=== PATIENT | male | born 1980 | race Caucasian/White ===

== ENCOUNTER 2017-10-17 20:47 | Emergency (ER) | payer OTHER ==
[~2017-10-17] VITALS: Ht 172.7 cm; Wt 90.7 kg
--- NOTE | 2017-10-17 21:02 | ED Upper Extremity ---
General Stated Complaint: L WRIST INJ, FALL Source: patient Exam Limitations: no limitations History of Present Illness Date Seen by Provider: Oct 17, 2017 Time Seen by Provider: 20:59 Initial Comments o ER with reports of a left wrist injury after a [place] the skating rink. He was skating when he fell backwards and landed attempting to catch himself on an outstretched left arm. He has deformity and swelling at the wrist. Onset: just prior to arrival Severity: moderate Pain/Injury Location: bilateral forearm; left wrist Method of Injury: fell Modifying Factors: Worse With Movement Allergies and Home Medications Allergies Coded Allergies: No Known Drug Allergies (Unverified , 10/17/17) Home Medications Hydrocodone/Acetaminophen 1 Each Tablet, 1 EACH PO Q4H PRN for PAIN-MODERATE TO SEVERE Prescribed by: ARANZA SAENZ on 10/17/172127 Patient Home Medication List Home Medication List Reviewed: Yes Constitutional: see HPI EENTM: see HPI Respiratory: no symptoms reported Cardiovascular: no symptoms reported Genitourinary: no symptoms reported Musculoskeletal: see HPI Skin: no symptoms reported Psychiatric/Neurological: No Symptoms Reported Past Kzdymws-Sukdpl-Rnzlqm Hx Patient Social History Recent Foreign Travel: No Contact w/Someone Who Travel: No Physical Exam Vital Signs Vital Signs - First Documented 10/17/17 21:01 Temp 98.0 Pulse 89 Resp 20 B/P (MAP) 130/102 (111) Pulse Ox 99 O2 Delivery Room Air Capillary Refill : General Appearance: WD/WN, no apparent distress HEENT: PERRL/EOMI, normal ENT inspection Neck: non-tender, full range of motion Respiratory: no respiratory distress, no accessory muscle use Gastrointestinal: normal bowel sounds, non tender Elbow/Forearm: normal inspection, non-tender, Right Wrist: Yes deformity, Yes pain, Yes soft tissue tenderness, Yes swelling Hand: normal inspection, non-tender (distally he is neurovascularly intact with normal sensation and brisk capillary refill of the fingertips. He does have a ring on his ring finger which we did have him remove himself and place on one of the fingers on the right hand) Neurologic/Tendon: normal sensation, normal motor functions Neurologic/Psychiatric: alert, normal mood/affect, oriented x 3 Skin: normal color, warm/dry Progress/Results/Core Measures Results/Orders My Orders Orders - ARANZA SAENZ APRN Wrist, Left, 3 Views Or More (10/17/17 20:58) Forearm, Left, 2 Views (10/17/17 20:58) Rx-Hydrocodone/[place] 5-325 Mg (Rx-Vicodin (10/17/17 22:00) Vital Signs/I&O 10/17/17 21:01 Temp 98.0 Pulse 89 Resp 20 B/P (MAP) 130/102 (111) Pulse Ox 99 O2 Delivery Room Air Diagnostic Imaging Diagonstic Imaging: Xray Comments NAME: EMELI DICKSON [facility] REC#: [id number] PT STATUS: REG ER : 1980 PHYSICIAN: ARANZA SAENZ APRN ADMIT DATE: 10/17/17/ER Draft Date of Exam:10/17/17 FOREARM, LEFT, 2 VIEWS INDICATION: Fell backwards, wrist pain and swelling EXAMINATION: Left forearm 10/17/2017 FINDINGS: Fracture of distal radius is noted; see the separate wrist radiograph. The remaining forearm is intact proximally with no fractures in the proximal forearm and no dislocations. The elbow joint grossly unremarkable. IMPRESSION: 1. Distal radius fracture; see separate wrist report. Proximal forearm intact. Dictated on workstation # [id number] Dict: 10/17/172134 Trans: 10/17/172143 [facility] [id number] Interpreted by: MATT OCHOA MD Electronically signed by: Departure Communication (Admissions) ppatient was placed in a sugar tong style splint by me Impression Primary Impression: Distal radius fracture Disposition: 01 HOME, SELF-CARE Condition: Stable Departure-Patient Inst. Decision time for Depature: 21:26 Referrals: EMELI RAIN MD, BRIAN J MD MCNEMAR, MARK E DO NO,LOCAL PHYSICIAN (PCP) Primary Care Physician INOCENCIA MONTOYA MD,LUIS MIGUEL August MD Patient Instructions: Wrist Fracture (DC) Add. Discharge Instructions: wear the splint at all times until you follow up with orthopedics. Call on Friday to make an appointment to be seen within the next 1-2 weeks. keep the arm elevated on several pillows while you're sleeping. This will help reduce the swelling and the subsequent throbbing sensation. Return to ER for any numbness or loss of sensation to the fingertips. Pain medication as directed. Scripts Hydrocodone/Acetaminophen ([place] 5-325 Tablet) 1 Each Tablet 1 EACH PO Q4H PRN for PAIN-MODERATE TO SEVERE, #20 TAB Prov: ARANZA SAENZ APRN 10/17/17 Work/School Note: Work Release Form Date Seen in the Emergency Department: Oct 17, 2017 Return to Work: Oct 18, 2017 Other Restrictions Listed Below: no use of left hand until cleared ARANZA SAENZ APRN Oct 17, 2017 21:02
[2017-10-17] MEDS ORDERED: HYDR-757 PO (21:28)
--- NOTE | 2017-10-17 21:45 | Diagnostic Imaging Report ---
INDICATION: Skateboarding accident, fell, wrist pain. EXAMINATION: Left wrist, 10/17/2017. FINDINGS: Three views of the wrist. Comminuted distal radius fracture is seen which extends into the joint space. Mild dorsal displacement of the distal fragment is noted. The remaining osseous structures are intact. Soft tissue swelling noted. IMPRESSION: Distal comminuted intra-articular fracture of the radius, as described above. Post reduction films recommended. Dictated by: Dictated on workstation # [id number]
--- NOTE | 2017-10-17 21:45 | Diagnostic Imaging Report ---
INDICATION: Fell backwards, wrist pain and swelling EXAMINATION: Left forearm 10/17/2017 FINDINGS: Fracture of distal radius is noted; see the separate wrist radiograph. The remaining forearm is intact proximally with no fractures in the proximal forearm and no dislocations. The elbow joint grossly unremarkable. IMPRESSION: 1. Distal radius fracture; see separate wrist report. Proximal forearm intact. Dictated by: Dictated on workstation # [id number]
[2017-10-17] MEDS ORDERED: RX-HYDROCODONE/APAP 5/325 MG #4 TAB PK PO PRN (22:00)
[2017-10-17 22:02] VITALS: BP 130/102
== END 2017-10-17 22:04 | disposition home or self-care (01) ==
LOC: ER 20:51
DX: S52.502A Unspecified fracture of the lower end of left radius, initial encounter for closed fracture (principal); W18.30XA Fall on same level, unspecified, initial encounter; Y92.331 Roller skating rink as the place of occurrence of the external cause
CPT/HCPCS: 29125; 73090; 73110